=== PATIENT | female | born 1945 ===

== ENCOUNTER 2022-10-23 09:12 | Outpatient (REF) | payer SELFPAY ==
--- NOTE | 2022-10-29 13:09 | MHC.AU.AEV ---
Adult Hearing Aid Assessment Date of Visit: 10/23/22 Reason for Appointment: Chapis was initially referred for a central auditory processing (CAP) evaluation; however, due to her significant hearing loss, which can interfere with CAP testing, a comprehensive hearing aid assessment was recommended. Chapis was initially fit with Oticon OPN 2 miniRITE hearing aids at [facility] in 2018. Since then, she had not been a consistent user of her hearing aids, although, more recently, she has been trying to wear them daily. Data logging showed about 6 hours of use per day. Chapis's primary concern is her ability to hear the beginning or end of words/questions. She often misses these portions of speech and reported that, even with her hearing aids, she frequently asks for repetition and misunderstands what was said. She tends to hear better when she has visual access to the speaker. Chapis has difficulty following conversations in a group particularly if background noise is present and especially if her attention is elsewhere (e.g., while watching television or cooking, playing a game and needing to consider next move). Her difficulty hearing in groups (e.g., parties or restaurants) or if other competing sound sources (e.g., exhaust fan when cooking) are present has increased over the past year. She is reportedly sensitive to loud sounds and noise seems overwhelmingly loud even when others do not think the situation is noisy. Upon initial inspection of the hearing aids, both wax guards and domes were partially occluded with cerumen. Cleaned both hearing aids, vacuumed microphones, and replaced domes and wax guards. Advised changing domes/wax guards every 3-6 months or as needed. Performed real ear measurements to optimize settings with adjustments to more appropriately match target. Adjusted program 2 ([id number]) to fully directional microphones and discussed need for positional changes to ensure speech is in front. Following aided testing, the settings were decreased to adaptation revenue cycle manager step one with automatic increase to full target (step three) in four months due to Chapis's loudness tolerance. Offered trial with a ConnectClip remote microphone to improve the [id number] ratio in specific listening environments; however, Chapis was not interested at this time. 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 than left ear Right Ear: Within normal through 750 Hz sloping to moderately-severe sensorineural hearing loss Left Ear: Within normal through 1500 Hz sloping to moderately-severe sensorineural hearing loss Hearing Instrument History- Right Ear: Improvement Spec/Model, Serial Number: Dee OPN 2 miniRITE SN: [id number] Battery Size: 312 Dispensed By: [facility] Date of Fittin Hearing Instrument History- Left Ear: Improvement Spec/Model, Serial Number: Oticon OPN 2 miniRITE SN: [id number] Battery Size: 312 Dispensed By: [facility] Date of Fittin Otoscopy: Right Ear: Unremarkable Left Ear: Unremarkable QuickSIN: -Unaided: 9 dB SNR Loss - Moderate SNR Loss -Aided: 5 dB SNR Loss - Mild SNR Loss Aided Testing: Soundfield Testing: Speech (recorded NU6 word lists) at 50 dB HL, 0 degrees azimuth; Noise at +5 dB SNR, 180 degrees azimuth -Unaided: 92% correct in quiet; 64% correct in noise -Aided: 100% correct in quiet; 84% correct in noise; 88% correct in noise in [id number] program with fully directional microphones Interpretation of Results: Soundfield testing revealed significant functional benefit from hearing aids, particularly in noise. Although significant improvement was noted in a controlled test environment, also discussed the following related to hearing loss and hearing aid use: -Importance of daily, consistent use of hearing aids in acclimating to full target settings for optimal speech intelligibility -Acceptable noise levels for different individuals and how some have higher tolerance for noise and it is therefore difficult to compare two individuals' experiences with hearing loss and hearing aids -Various communication strategies and how hearing aids are only part of the solution for overall better hearing; Attention, focus, and environmental factors will also impact overall ability to hear and understand -Cognitive load associated with hearing loss and its impact on auditory fatigue and ultimately full understanding and retention of a conversation Recommendations: -Maintain consistent use of bilateral amplification -Utilize other communication strategies to optimize listening environment -Return for hearing aid adjustments or maintenance, as needed Diagnosis: Primary Diagnosis: H90.3 Bilateral Sensorineural Hearing Loss Signature: Provider: Bharathi Greene, [facility]
== END 2022-10-23 09:13 | disposition home or self-care (01) ==
LOC: HO.HAP 09:12
PROVIDERS: Visit Provider Internal Medicine
DX: Z46.1 Encounter for fitting and adjustment of hearing aid (principal); H90.3 Sensorineural hearing loss, bilateral
CPT/HCPCS: 92590